=== PATIENT | female | born 1985 | race Caucasian/White ===

== ENCOUNTER 2020-06-28 13:55 | Emergency (ER) | payer OTHER, SELFPAY ==
[2020-06-28 14:02] VITALS: BP 126/72; PULSE 85; RESP 16; TEMP 36.9; O2SAT 98
--- NOTE | 2020-06-28 14:07 | ED.LOWEXIN ---
HPI - Extremity Injury (Lower) <JARVIS Gambino - Last Filed: 06/28/20 14:54> General Chief Complaint: Extremity Injury, Lower Stated Complaint: Left foot injury yest Time Seen by Provider: 06/28/20 13:58 Source: patient Mode of arrival: Ambulatory Limitations: no limitations History of Present Illness HPI Narrative: This is a 35 year female, nonsmoker, who has noncontributing medical history presents to ED with chief complain of left dorsal and plantar aspect of mid foot pain. Patient reports she fell down the stairs and inverted affected food. Patient reports pain is 3/10 at rest and increases to 7/10 with ambulation or bearing weight. Patient had taken 600 mg of ibuprofen 2 hours ago which seems helping the discomfort. No previous injury to same foot or ankle. Patient denies ankle pain, knee pain and she is able to ambulate in limping gait. Related Data Home Medications Medication Instructions Recorded Confirmed PNV cmb#95-ferrous fumarate-FA 1 tab PO DAILY 06/28/20 06/28/20 [] Allergies Allergy/AdvReac Type Severity Reaction Status Date / Time amoxicillin Allergy Verified 06/28/20 14:05 Review of Systems <JARVIS Gambino - Last Filed: 06/28/20 14:54> Review of Systems Narrative: General: Denies fever, chills, fatigue, malaise, sweats. Respiratory: Denies dyspnea, cough, wheezing, hemoptysis, sputum. Cardiovascular: Denies chest pain, palpitations, orthopnea, edema. Musculoskeletal: See HPI Skin: Denies rash, skin lesions, or other. Neurologic: Denies weakness, headache, numbness, change in speech, confusion, seizures, incoordination. Psychiatric: No concerning psychosocial issues. 12-point review of systems is negative except for those stated above. Patient History <JARVIS Gambino - Last Filed: 06/28/20 14:54> Surgical History History of (Acute) Social History Smoking Status: Never smoker Smoking Status: Never smoker alcohol intake frequency: other Substance Use Type: does not use Exam <JARVIS Gambino - Last Filed: 06/28/20 14:54> Narrative Exam Narrative: General appearance: well developed, well nourished, in no acute distress. Head: normocephalic, atraumatic, no scalp lesions, non-tender. ENT: Hearing grossly intact. Airway patent. Neck/Thyroid: neck supple, full range of motion, no visible masses or meningeal signs. No JVD, non-tender without lymphadenopathy. Skin: no suspicious rashes, lesions over visible areas. Warm and dry and appropriate color for ethnicity. Heart: no clubbing, no cyanosis, no edema. Lungs: Breathing even and unlabored. No stridor. No accessory muscles used. Able to speak in full sentences. Chest: normal shape and expansion. Abdomen: non-obese, non-distended. Neurologic: alert and oriented. 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 Psych: good eye contact, normal affect. Initial Vital Signs Initial Vital Signs: Vital Signs Temperature 98.4 F 06/28/20 14:02 Pulse Rate 85 06/28/20 14:02 Respiratory Rate 16 06/28/20 14:02 Blood Pressure 126/72 06/28/20 14:02 Pulse Oximetry 98 06/28/20 14:02 Extrem Left lower extremity: lower leg Details: no edema; no tenderness, ankle Details: normal to inspection and no edema; no tenderness and foot Details: normal capillary refill, normal to inspection, tenderness Location: of the dorsal foot Location: medially and of the plantar foot Location: other (midfoot), toes with normal ROM, no edema, vascular exam Details: dorsalis pedis pulse present, posterior tibial pulse present and normal capillary refill, tendon exam Details: active flexion normal and active extension normal and motor-sensory exam Details: light-touch normal; no unusual warmth, no ecchymosis and no crepitus <Mayte Leger MD - Last Filed: 06/28/20 17:52> Initial Vital Signs Initial Vital Signs: Vital Signs Temperature 98.4 F 06/28/20 14:02 Pulse Rate 85 06/28/20 14:02 Respiratory Rate 16 06/28/20 14:02 Blood Pressure 126/72 06/28/20 14:02 Pulse Oximetry 98 06/28/20 14:02 Scores <JARVIS Gambino - Last Filed: 06/28/20 14:54> GCS Eliza coma scale eye opening: Spontaneous Eliza coma scale verbal response: Orientated [place] coma scale motor response: Obey commands [place] coma scale total score: 15 Course <JARVIS Gambino - Last Filed: 06/28/20 14:54> Orders Ordered: ED Orders 06/28/20 14:06 XR foot LT min 3V Stat Vital Signs Vital signs: Vital Signs - 8 hr 06/28/20 14:02 06/28/20 15:01 Temperature 98.4 F Pulse Rate 85 81 Respiratory Rate 16 16 Blood Pressure 126/72 129/63 Pulse Oximetry 98 95 <Mayte Leger MD - Last Filed: 06/28/20 17:52> Orders Ordered: ED Orders 06/28/20 14:06 XR foot LT min 3V Stat Vital Signs Vital signs: Vital Signs - 8 hr 06/28/20 14:02 06/28/20 15:01 Temperature 98.4 F Pulse Rate 85 81 Respiratory Rate 16 16 Blood Pressure 126/72 129/63 Pulse Oximetry 98 95 MDM - Extremity Injury (Lower) <JARVIS Gambino - Last Filed: 06/28/20 14:54> Differential Diagnosis Differential diagnosis: Likely other (Foot sprain, foot fracture) Medical Records Attestation: I reviewed the patient's medical records. Imaging Data XR-Foot LT: Radiologist's Impression: [place] [address] XRay Report Signed Patient: Princess Guillen [facility]#: [id number] : 1985Acct:[id number] Age/Sex: 35 / FDate of Service: 06/28/20 Loc: ED Accession Number: [id number] Procedure: XR foot LT min 3V Ordering Provider: Isaac Hernandez PROCEDURE: XR FOOT LT MIN 3V INDICATIONS: injury TECHNIQUE: 3 views of the foot were acquired. COMPARISON: None. FINDINGS: Bones: No fractures or dislocations. No suspicious bony lesions. Soft tissues: No tibiotalar joint effusion. Achilles tendon appears normal. IMPRESSION: No evidence acute bony abnormality of the left foot Dictated by: Sidney Stewart M.D. on 06/28/2020 at 14:37 Approved by: Sidney Stewart M.D. on 06/28/2020 at 14:38 MDM Narrative Medical decision making narrative: This is a 35-year-old female who presents to ED after she inverted left foot last night after falling from stairs. Has intact sensation, circulation distally. She was able to move all her toes without difficulty. Pain was worse with weight-bearing and ambulation. No obvious deformity or edema noted. X-ray test does not show fractures or dislocations. Affected foot applied with Trevin wrap for support and immobilization. Advised to continue with RICE therapy and use [id number] Tylenol and Motrin as needed. Advised consider repeat imaging test if pain lasting longer than 10-14 days. Return precautions were discussed with patient and patient verbalized understanding in agreement with the treatment plan. Discharge Plan Departure Patient Disposition: Home Clinical Impression: Foot sprain Qualifiers: Encounter type: initial encounter Laterality: left Qualified Code(s): S93.602A - Unspecified sprain of left foot, initial encounter Discharge Date/Time: 06/28/20 15:03 Instructions: DI for Foot Sprain Activity Restrictions/Additional Instructions: You have been diagnosed with [left foot sprain. According to x-ray test results there is no acute findings such as fractures or dislocation. You can use RICE therapy to decrease inflammation and pain.]. What to do: *Take your medications as directed. Continue to use [id number] Tylenol and or Motrin as needed for discomfort. *Follow up with your primary care provider in 2-3 days, call for an appointment. Let them know you were seen in the ED and that we asked you to be seen in follow up. *Return to ED if you have any new, worsening, or concerning symptoms, such as [worsening pain, tingling/numbness/weakness to affected foot, chest pain, breathing difficulty, unable to tolerate fluids, or any acute concerns]. Prescriptions: No Action PNV cmb#95-ferrous fumarate-FA [] 28 mg iron- 800 mcg Tablet 1 tab PO DAILY RF: 0 Referrals: Jaspal Mares DO [Primary Care Provider] - <Mayte Leger MD - Last Filed: 06/28/20 17:52> Cosign ED Attending Cosdavinaature Attestation: I was immediately available in the department for consultation throughout this patient's visit. I agree with documentation as above. Mayte Leger MD
[2020-06-28 15:01] VITALS: BP 129/63; PULSE 81; RESP 16; O2SAT 95
== END 2020-06-28 15:03 | disposition home or self-care (01) ==
PROVIDERS: Emergency Provider Nurse Practitioner Family; PCP Student in an Organized Health Care Education/Training Program
DX: S93.602A Unspecified sprain of left foot, initial encounter (principal)
CPT/HCPCS: 73630; 99281; 99283

== ENCOUNTER 2021-03-30 09:10 | Emergency (ER) | payer OTHER, SELFPAY ==
[2021-03-30] VITALS (16 sets, daily range): BP systolic 111–140; BP diastolic 59–75; PULSE 102–129; RESP 20–29; TEMP 38.1; O2SAT 91–95; BMI 32.8
--- NOTE | 2021-03-30 09:51 | DI.RAD.S_ITS ---
PROCEDURE: XR CHEST 1V INDICATIONS: shortness of breath TECHNIQUE: One view of the chest was acquired. COMPARISON: None. FINDINGS: Surgical changes and devices: None. Lungs and pleura: Lungs are clear. No pleural effusions or pneumothorax. Mediastinum: Mediastinal contours appear normal. Heart size is normal. Bones and chest wall: No suspicious bony lesions. Overlying soft tissues appear unremarkable. IMPRESSION: No acute cardiopulmonary abnormality. Dictated by: John Lincoln M.D. on 03/30/2021 at 10:15 Approved by: John Lincoln M.D. on 03/30/2021 at 10:18
[2021-03-30 10:13] LABS: Add Manual Diff / Slide Review NO; Basophils Absolute Auto 0 /uL (0-100); Basophils Percent Auto 0.2 % (0-2); Eosinophils Absolute Auto 400 /uL (0-450); Eosinophils Percent Auto 2.6 % (2-4); Hemoglobin 12.7 g/dL (12.0-16.0); Lymphocytes Absolute Auto 400 /uL (1100-4500); Lymphocytes Percent Auto 2.5 % (25-40); Mean Corpuscular HGB Conc 33.6 % (30-36); Mean Corpuscular Hemoglobin 28.9 PG (26-34); Monocytes Absolute Auto 1100 /uL (0-900); Monocytes Percent Auto 7.6 % (3-14); Neutrophils Absolute Auto 12800 /uL (1500-7000); Neutrophils Percent Auto 87.1 % (50-75); Platelet Count 299 X10^3/uL (150-400); Red Blood Cell Count 4.41 X10^6/uL (4.0-5.2); Red Cell Distribution Width 13.3 % (11.6-14.8); White Blood Cell Count 14.7 X10^3/uL (4.5-11.0)
[2021-03-30] MEDS: ACETAMINOPHEN 325 MG TABLET 975 MG PO (10:17)
[2021-03-30 10:24] LABS: Lactate (Lactic Acid) 1.1 mmol/L (0.7-2.1)
[2021-03-30 10:25] LABS: Alanine Aminotransferase 23 IU/L (<35); Albumin 4.3 g/dL (3.5-5.0); Albumin Globulin Ratio 1.3 (1.0-2.8); Alkaline Phosphatase 64 U/L (38-126); Aspartate Aminotransferase 25 IU/L (14-36); BUN Creatinine Ratio 11.3 (6-22); Bilirubin Total 0.7 mg/dL (0.2-1.3); Blood Urea Nitrogen 6 mg/dL (7-17); Calcium 9.1 mg/dL (8.4-10.2); Carbon Dioxide 26 mmol/L (22-32); Chloride 102 mmol/L (98-107); Estimated Glomerular Filt Rate > 60.0 mL/min (>60); Globulin 3.3 g/dL (1.7-4.1); Glucose 121 mg/dL (70-100); HEMOLYSIS < 15 (0-50); Potassium 3.6 mmol/L (3.4-5.1); Sodium 134 mmol/L (137-145); Total Protein 7.6 g/dL (6.3-8.2)
[2021-03-30 10:45] LABS: COVID19 -Nasal RAPID Negative (Negative)
--- NOTE | 2021-03-30 10:53 | ED_ITS ---
HPI - Fever General Chief Complaint: Fever Stated Complaint: body aches, fever, diff breathing, high HR, dizzy Time Seen by Provider: 03/30/21 10:00 Source: patient Mode of arrival: Family Vehicle Limitations: no limitations History of Present Illness HPI Narrative: This is a 35-year-old female comes emergency department with complaint of fevers, myalgias and chest discomfort for the past 2-3 days. Patient has felt slightly dizzy. She has had some increasing shortness of breath. She denies any nausea or vomiting. She denies any GI symptoms. No urinary symptoms. No vaginal discharge. Patient denies any rash. She states she did have a Catrachito and Catrachito vaccine 4 months ago. She denies any other medical issues besides depression and takes Celexa daily. She has had a prior . She is allergic to amoxicillin. Occasional tobacco use. Denies illicit or recreational drugs. Related Data Home Medications Medication Instructions Recorded Confirmed PNV cmb#95-ferrous fumarate-FA 1 tab PO DAILY 06/28/20 06/28/20 [] Previous Rx's Medication Instructions Recorded levofloxacin 750 mg PO DAILY 7 Days #7 tab 03/30/21 Allergies Allergy/AdvReac Type Severity Reaction Status Date / Time amoxicillin Allergy Verified 06/28/20 14:05 Review of Systems Review of Systems ROS Unobtainable: All systems reviewed & are unremarkable except as noted in HPI and below Patient History Surgical History History of Social History Smoking Status: Current some day smoker Smoking Status: Current some day smoker tobacco type: cigarettes alcohol intake frequency: 0-2 drinks per day Substance Use Type: does not use Exam Narrative Exam Narrative: GENERAL: Alert and oriented x three, well-nourished female in mild distress. HEENT: Head normocephalic, atraumatic, EOMI, pupils reactive, face symmetric, moist mucous membranes NECK: Supple, full range of motion CARDIOVASCULAR: Regular rate and rhythm without murmurs, rubs or gallops. RESPIRATORY: Breath sounds equal bilaterally, no wheezes rales or rhonchi. ABDOMEN: Soft, nontender. Normoactive bowel sounds all 4 quadrants. No guarding or rebound, rigidity, no mass : No CVA tenderness EXTREMITIES: Normal range of motion, no clubbing or edema. Neurovascularly intact. NEUROLOGICAL: Cranial nerves II through XII grossly intact. Moving all extremities SKIN: Warm, dry, no petechiae, no rashes or lesions. Initial Vital Signs Initial Vital Signs: Vital Signs Temperature 100.5 F H 03/30/21 09:37 Pulse Rate 129 H 03/30/21 09:37 Respiratory Rate 24 03/30/21 09:37 Blood Pressure 140/68 03/30/21 09:37 Pulse Oximetry 94 03/30/21 09:37 Course Orders Ordered: ED Orders 03/30/21 10:55 Troponin & CK Cardiac Panel Stat 03/30/21 11:02 COVID19 - ADMIT (GRINDING ROOM INSPECTOR swab/PCR) Stat 03/30/21 11:18 D Dimer Stat 03/30/21 12:10 CT angio chest PE protocol Stat Discontinued Medications Acetaminophen (Acetaminophen 325 Mg Tablet) 975 mg PO NOW ONE Stop: 03/30/21 10:02 Last Admin: 03/30/21 10:17 Dose: 975 mg Documented by: FRANCINE Sodium Chloride (Normal Saline 0.9%) 1,000 mls @ 1,000 mls/hr IV BOLUS ONE Stop: 03/30/21 11:54 Last Infusion: 03/30/21 13:50 Dose: 0 mls/hr Documented by: Admin: 03/30/21 11:00 Dose: 1,000 mls/hr Documented by: MAYA Levofloxacin (Levofloxacin 250 Mg Tablet) 750 mg PO NOW ONE Stop: 03/30/21 13:39 Last Admin: 03/30/21 13:58 Dose: 750 mg Documented by: FRANCINE Vital Signs Vital signs: Vital Signs - 8 hr 03/30/21 12:00 03/30/21 12:01 03/30/21 12:41 Pulse Rate 113 H 110 H 112 H Respiratory Rate 22 22 Blood Pressure 114/64 Pulse Oximetry 93 93 93 03/30/21 13:00 03/30/21 13:30 03/30/21 13:31 Pulse Rate 106 H 105 H 102 H Respiratory Rate 21 25 H 27 H Blood Pressure 112/60 Pulse Oximetry 94 93 95 03/30/21 13:38 03/30/21 13:59 03/30/21 14:00 Pulse Rate 107 H 102 H Respiratory Rate 20 29 H Blood Pressure 111/59 L 129/75 Pulse Oximetry 92 95 MDM - Fever Lab Data Attestation: I reviewed the patient's lab results. Result diagrams: 03/30/21 10:05 03/30/21 10:05 Labs: Lab Results 03/30/21 03/30/21 03/30/21 Range/Units 10:05 10:05 10:05 WBC 14.7 H (4.5-11.0) X10^3/uL RBC 4.41 (4.0-5.2) X10^6/uL Hgb 12.7 (12.0-16.0) g/dL Hct 38.0 (36-46) % MCV 86.0 (80-100) fL MCH 28.9 (26-34) PG MCHC 33.6 (30-36) % RDW 13.3 (11.6-14.8) % Plt Count 299 (150-400) X10^3/uL Neut % (Auto) 87.1 H (50-75) % Lymph % (Auto) 2.5 L (25-40) % [place] % (Auto) 7.6 (3-14) % Eos % (Auto) 2.6 (2-4) % Baso % (Auto) 0.2 (0-2) % Neut # (Auto) 02388 H (8204-0438) /uL Lymph # (Auto) 400 L (6863-8219) /uL [place] # (Auto) 1100 H (0-900) /uL Eos # (Auto) 400 (0-450) /uL Baso # (Auto) 0 (0-100) /uL D-Dimer (<230) ng/mL Sodium 134 L (137-145) mmol/L Potassium 3.6 (3.4-5.1) mmol/L Chloride 102 (98-107) mmol/L Carbon Dioxide 26 (22-32) mmol/L BUN 6 L (7-17) mg/dL Creatinine 0.53 (0.52-1.04) mg/dL Estimated GFR > 60.0 (>60) mL/min BUN/Creatinine Ratio 11.3 (6-22) Glucose 121 H (70-100) mg/dL Lactate 1.1 (0.7-2.1) mmol/L Calcium 9.1 (8.4-10.2) mg/dL Total Bilirubin 0.7 (0.2-1.3) mg/dL AST 25 (14-36) IU/L ALT 23 (<35) IU/L Alkaline Phosphatase 64 (38-126) U/L Total Creatine Kinase (30-135) U/L CK-MB (CK-2) CK-MB (CK-2) Rel Index Troponin I (0.01-0.034) ng/mL Total Protein 7.6 (6.3-8.2) g/dL Albumin 4.3 (3.5-5.0) g/dL Globulin 3.3 (1.7-4.1) g/dL Albumin/Globulin Ratio 1.3 (1.0-2.8) SARS-CoV-2 (PCR) (Negative) 03/30/21 03/30/21 03/30/21 Range/Units 10:17 10:55 11:02 WBC (4.5-11.0) X10^3/uL RBC (4.0-5.2) X10^6/uL Hgb (12.0-16.0) g/dL Hct (36-46) % MCV (80-100) fL MCH (26-34) PG MCHC (30-36) % RDW (11.6-14.8) % Plt Count (150-400) X10^3/uL Neut % (Auto) (50-75) % Lymph % (Auto) (25-40) % [place] % (Auto) (3-14) % Eos % (Auto) (2-4) % Baso % (Auto) (0-2) % Neut # (Auto) (3149-4269) /uL Lymph # (Auto) (2598-2235) /uL [place] # (Auto) (0-900) /uL Eos # (Auto) (0-450) /uL Baso # (Auto) (0-100) /uL D-Dimer (<230) ng/mL Sodium (137-145) mmol/L Potassium (3.4-5.1) mmol/L Chloride (98-107) mmol/L Carbon Dioxide (22-32) mmol/L BUN (7-17) mg/dL Creatinine (0.52-1.04) mg/dL Estimated GFR (>60) mL/min BUN/Creatinine Ratio (6-22) Glucose (70-100) mg/dL Lactate (0.7-2.1) mmol/L Calcium (8.4-10.2) mg/dL Total Bilirubin (0.2-1.3) mg/dL AST (14-36) IU/L ALT (<35) IU/L Alkaline Phosphatase (38-126) U/L Total Creatine Kinase 54 (30-135) U/L CK-MB (CK-2) TNP CK-MB (CK-2) Rel Index TNP Troponin I < 0.012 (0.01-0.034) ng/mL Total Protein (6.3-8.2) g/dL Albumin (3.5-5.0) g/dL Globulin (1.7-4.1) g/dL Albumin/Globulin Ratio (1.0-2.8) SARS-CoV-2 (PCR) Negative Negative (Negative) 03/30/21 Range/Units 11:18 WBC (4.5-11.0) X10^3/uL RBC (4.0-5.2) X10^6/uL Hgb (12.0-16.0) g/dL Hct (36-46) % MCV (80-100) fL MCH (26-34) PG MCHC (30-36) % RDW (11.6-14.8) % Plt Count (150-400) X10^3/uL Neut % (Auto) (50-75) % Lymph % (Auto) (25-40) % [place] % (Auto) (3-14) % Eos % (Auto) (2-4) % Baso % (Auto) (0-2) % Neut # (Auto) (2647-3113) /uL Lymph # (Auto) (8530-5726) /uL [place] # (Auto) (0-900) /uL Eos # (Auto) (0-450) /uL Baso # (Auto) (0-100) /uL D-Dimer 386 H (<230) ng/mL Sodium (137-145) mmol/L Potassium (3.4-5.1) mmol/L Chloride (98-107) mmol/L Carbon Dioxide (22-32) mmol/L BUN (7-17) mg/dL Creatinine (0.52-1.04) mg/dL Estimated GFR (>60) mL/min BUN/Creatinine Ratio (6-22) Glucose (70-100) mg/dL Lactate (0.7-2.1) mmol/L Calcium (8.4-10.2) mg/dL Total Bilirubin (0.2-1.3) mg/dL AST (14-36) IU/L ALT (<35) IU/L Alkaline Phosphatase (38-126) U/L Total Creatine Kinase (30-135) U/L CK-MB (CK-2) CK-MB (CK-2) Rel Index Troponin I (0.01-0.034) ng/mL Total Protein (6.3-8.2) g/dL Albumin (3.5-5.0) g/dL Globulin (1.7-4.1) g/dL Albumin/Globulin Ratio (1.0-2.8) SARS-CoV-2 (PCR) (Negative) Point of Care Testing Test Results Negative Urine Dip Bedside Urine Glucose Negative Bedside Urine Bilirubin - Negative Bedside Urine Ketone - Negative Urine Specific [place] 1.010 Bedside Urine Occult Blood - Negative Bedside Urine pH 6.0 Bedside Urine Protein - Negative Bedside Urine Urobilinogen - Negative Bedside Urine Nitrite - Negative Bedside Urine Leukocytes - Negative Esterase Imaging Data Chest x-ray: Radiologist's Impression: Princess Guillen 35 F [address] [id number] ReportSigned Patient: Princess Guillen [facility]#: [id number]: 1985Acct:[id number]/Sex: 35 / FDate of Service: 03/30/21Loc: EDAccession Number: [id number] Procedure: XR chest 1V Ordering Provider: Esperanza Fam D.O. PROCEDURE: XR CHEST 1V INDICATIONS: shortness of breath TECHNIQUE: One view of the chest was acquired. COMPARISON: None. FINDINGS: Surgical changes and devices: None. Lungs and pleura: Lungs are clear. No pleural effusions or pneumothorax. Mediastinum: Mediastinal contours appear normal. Heart size is normal. Bones and chest wall: No suspicious bony lesions. Overlying soft tissues appear unremarkable. IMPRESSION: No acute cardiopulmonary abnormality. Dictated by: John Lincoln M.D. on 03/30/2021 at 10:15 Approved by: John Lincoln M.D. on 03/30/2021 at 10:18 CT scan - chest: Radiologist's Impression: [address] [id number] Scan ReportSigned Patient: Princess Guillen MMR#: [id number]: 1985Acct:[id number]/Sex: 35 / FDate of Service: 03/30/21Loc: EDAccession Number: [id number] Procedure: CT angio chest PE protocol Ordering Provider: Esperanza Fam D.O. PROCEDURE: CT ANGIO CHEST PE PROTOCOL INDICATIONS: fever, tachycardia, sob TECHNIQUE: After the administration of intravenous contrast, 2 mm thick sections acquired from the pulmonary apices to the posterior costophrenic angles. 3-dimensional maximum intensity projection (MIP) coronal and sagittal reformats were then acquired through the thorax. For radiation dose reduction, the following was used: automated exposure control, adjustment of mA and/or kV according to patient size. COMPARISON: [facility], CR, XR CHEST 1V, 03/30/2021, 9:56. FINDINGS: Image quality: Excellent. Pulmonary arteries: Pulmonary arteries are normal in size, and demonstrate no intraluminal filling defects to suggest central pulmonary embolism. Lungs and pleura: There is bilateral lung interstitial thickening concerning for pulmonary edema. Scattered rounded and ovoid ground-glass opacities noted in the periphery of the lungs bilaterally concerning for atypical pneumonia. 7 millimeter nodule noted in the right lower lobe (series 5, image 149). 6 millimeter nodule noted in the right upper lobe (series 5, image 148). 7 millimeter nodule in the left lower lobe (series 5, image 149). Trace bilateral pleural fluid collections. No pneumothorax. Central and peripheral airways are patent. Mediastinum: Heart size is normal, without pericardial effusion. Bilateral hilar and mediastinal enlarged lymph nodes. Thoracic aorta is normal in caliber and enhancement. Esophagus is normal in caliber, without hiatal hernia. Bones and chest wall: No suspicious bony lesions. Ribs and thoracic spine appear intact throughout. Thyroid gland is normal. No axillary or supraclavicular adenopathy. Abdomen: Partially visualized gallstones. Visualized upper abdominal solid organs appear normal in the early arterial phase of enhancement. IMPRESSION: 1. No pulmonary embolus. 2. Bilateral lung interstitial thickening concerning for pulmonary edema. 3. Scattered, peripheral ground-glass opacities in the lungs bilaterally concerning for atypical pneumonia. 4. Bilateral lung nodules range in size from 6-[address] scan of the chest in 3 months. 5. Bilateral hilar and mediastinal lymphadenopathy which could be reactive or neoplastic. 6. Trace bilateral pleural effusions. Dictated by: Tiffanie Looney MD, PhD on 03/30/2021 at 12:37 Approved by: Tiffanie Looney MD, PhD on 03/30/2021 at 12:45 ECG Data Attestation: I personally reviewed and interpreted this ECG as follows: Prior ECG tracings: not available for review Interpretation: Sinus tachycardia nonspecific change. Some inverted T-wave in 2 3 AVF as well as lateral leads. No elevation appreciated. MDM Narrative Medical decision making narrative: This is a 35-year-old female comes in with fever, body aches and feeling unwell. Her system seem quite consistent with COVID and initial rapid COVID was negative a more sensitive PCR was ordered which is still negative. D-dimers noted to be elevated and patient is COVID negative this time so PE study was ordered which shows an atypical pneumonia, maybe some mild pulmonary edema as well as some reactive lymph nodes and several small spots on patient's CT. These findings were all related to the patient. She has been having improvement in her symptoms here. She has not been hypoxic any point, she would like to return home. Was given initial dose of antibiotics here. But with strict return precautions. Patient's troponin was negative, she does have a leukocytosis with elevated neutrophils which is more consistent with a bacterial infection. Patient's lactate is negative here in the department. Discharge Plan Departure Patient Disposition: Home Clinical Impression: Pneumonia Instructions: Atypical Pneumonia Activity Restrictions/Additional Instructions: Follow-up with your physician in next 24-48 hours for recheck. Your labs today do reflect infection. Your imaging today shows atypical pneumonia but no signs of blood clots, there are some lung nodules and it is recommended to have a repeat CT scan in 3 months . There is also some lymph nodes which could be reactive as well as trace bilateral pleural effusions. Take antibiotics until completely gone. You may take Tylenol and/or ibuprofen as needed for fevers. Please return for fevers that are persistent the do not respond to Tylenol or ibuprofen, increasing shortness of breath, lightheadedness or passing out, new worsening chest pain, swelling of her legs or other new or concerning symptoms. Prescriptions: New levofloxacin 750 mg tablet 750 mg PO DAILY 7 Days Qty: 7 RF: 0 No Action PNV cmb#95-ferrous fumarate-FA [] 28 mg iron- 800 mcg Tablet 1 tab PO DAILY RF: 0 Referrals: Jaspal Mares DO [Primary Care Provider] -
[2021-03-30] MEDS: SODIUM CHLORIDE 0.9% 1,000 ML 1000 ML IV (11:00)
[2021-03-30 11:06] LABS: Creatine Kinase 54 U/L (30-135)
[2021-03-30 11:19] LABS: Troponin I < 0.012 ng/mL (0.01-0.034)
[2021-03-30 11:30] LABS: D Dimer 386 ng/mL (<230)
--- NOTE | 2021-03-30 12:10 | DI.CT.S_ITS ---
PROCEDURE: CT ANGIO CHEST PE PROTOCOL INDICATIONS: fever, tachycardia, sob TECHNIQUE: After the administration of intravenous contrast, 2 mm thick sections acquired from the pulmonary apices to the posterior costophrenic angles. 3-dimensional maximum intensity projection (MIP) coronal and sagittal reformats were then acquired through the thorax. For radiation dose reduction, the following was used: automated exposure control, adjustment of mA and/or kV according to patient size. COMPARISON: [facility], CR, XR CHEST 1V, 03/30/2021, 9:56. FINDINGS: Image quality: Excellent. Pulmonary arteries: Pulmonary arteries are normal in size, and demonstrate no intraluminal filling defects to suggest central pulmonary embolism. Lungs and pleura: There is bilateral lung interstitial thickening concerning for pulmonary edema. Scattered rounded and ovoid ground-glass opacities noted in the periphery of the lungs bilaterally concerning for atypical pneumonia. 7 millimeter nodule noted in the right lower lobe (series 5, image 149). 6 millimeter nodule noted in the right upper lobe (series 5, image 148). 7 millimeter nodule in the left lower lobe (series 5, image 149). Trace bilateral pleural fluid collections. No pneumothorax. Central and peripheral airways are patent. Mediastinum: Heart size is normal, without pericardial effusion. Bilateral hilar and mediastinal enlarged lymph nodes. Thoracic aorta is normal in caliber and enhancement. Esophagus is normal in caliber, without hiatal hernia. Bones and chest wall: No suspicious bony lesions. Ribs and thoracic spine appear intact throughout. Thyroid gland is normal. No axillary or supraclavicular adenopathy. Abdomen: Partially visualized gallstones. Visualized upper abdominal solid organs appear normal in the early arterial phase of enhancement. IMPRESSION: 1. No pulmonary embolus. 2. Bilateral lung interstitial thickening concerning for pulmonary edema. 3. Scattered, peripheral ground-glass opacities in the lungs bilaterally concerning for atypical pneumonia. 4. Bilateral lung nodules range in size from 6-[address] scan of the chest in 3 months. 5. Bilateral hilar and mediastinal lymphadenopathy which could be reactive or neoplastic. 6. Trace bilateral pleural effusions. Dictated by: Tiffanie Looney MD, PhD on 03/30/2021 at 12:37 Approved by: Tiffanie Looney MD, PhD on 03/30/2021 at 12:45
[2021-03-30 12:13] LABS: COVID19 - ADMIT (NP swab/PCR) Negative (Negative)
[2021-03-30] MEDS: levoFLOXacin 250 MG TABLET 750 MG PO (13:58)
== END 2021-03-30 14:07 | disposition home or self-care (01) ==
PROVIDERS: Emergency Provider Emergency Medicine; PCP Student in an Organized Health Care Education/Training Program
DX: J18.9 Pneumonia, unspecified organism (principal); R42 Dizziness and giddiness; R50.9 Fever, unspecified; Z20.822 Contact with and (suspected) exposure to COVID-19; R00.0 Tachycardia, unspecified
CPT/HCPCS: 36415; 71045; 71275; 80053; 81003; 81025; 82550; 83605; 84484; 85025; 85379; 87635; 93005; 93010; 96360; 96361; 99284; 99285; C9803